=== PATIENT | female | born 1960 | race Caucasian/White ===

== ENCOUNTER → 2017-02-21 | Outpatient (CLI) | payer MEDICARE ==
[~2017-02-21] VITALS: Ht 160 cm; Wt 104.3 kg
[~2017-02-21] MED LIST: ATIVAN0.5 MG PO; ELIQUIS 2.5 MG2.5 MG PO; ELIQUIS2.5 MG PO; FLEXERIL 10 MG10 MG PO; HYDROXYZINE HCL25 MG PO; HYDROXYZINE HCL50 MG PO; IBUPROFEN600 MG PO; LIPITOR TAB 2020 MG PO; LORTAB 7.5-3251 EACH PO; NEURONTIN 300300 MG PO; NORCO 10-325 T1 EACH PO; NORCO 7.5-3251 EACH PO; PERCOCET 7.5-31 EACH PO; SERTRALINE HCL100 MG PO; TYLENOL 325MG325 MG PO; ZOLOFT100 MG PO
[2017-02-21 10:19] LABS: HEMOGLOBIN 14.1 gm/dl (12.3-15.3); RED BLOOD COUNT 4.72 M/UL (4.00-5.10); WHITE BLOOD COUNT 6.2 K/UL (4.5-11.0)
[2017-02-21 10:38] LABS: BUN/CREATININE RATIO 40 (0-10)
== END ==
LOC: OPSV2 09:36 → EDSTATUS 10:00
PROVIDERS: Orthopaedic Surgery
DX: Z01.810 Encounter for preprocedural cardiovascular examination (principal); Z01.812 Encounter for preprocedural laboratory examination; Z01.818 Encounter for other preprocedural examination; M17.11 Unilateral primary osteoarthritis, right knee
CPT/HCPCS: 36415; 71020; 80048; 85025; 87081; 93005

== ENCOUNTER → 2017-03-03 | Outpatient (CLI) | payer MEDICARE ==
[2017-03-03 12:15] LABS: BUN/CREATININE RATIO 30 (0-10)
== END ==
LOC: LAB 11:34
PROVIDERS: Orthopaedic Surgery
DX: Z01.812 Encounter for preprocedural laboratory examination (principal)
CPT/HCPCS: 80048; 86850; 86900; 86901

== ENCOUNTER 2017-03-04 05:41 | Inpatient (IN) | payer MEDICARE ==
[~2017-03-04] VITALS: Ht 160 cm; Wt 104.3 kg
[~2017-03-04 05:41] MED LIST changes: -ELIQUIS 2.5 MG2.5 MG PO; -ELIQUIS2.5 MG PO; -FLEXERIL 10 MG10 MG PO; -NORCO 10-325 T1 EACH PO; -NORCO 7.5-3251 EACH PO; -PERCOCET 7.5-31 EACH PO; -SERTRALINE HCL100 MG PO; -TYLENOL 325MG325 MG PO
[2017-03-05 05:44] LABS: RED BLOOD COUNT 3.76 M/UL (4.00-5.10); WHITE BLOOD COUNT 9.4 K/UL (4.5-11.0)
[2017-03-05 05:57] LABS: BUN/CREATININE RATIO 20 (0-10)
[2017-03-06 05:17] LABS: HEMOGLOBIN 10.5 gm/dl (12.3-15.3); RED BLOOD COUNT 3.58 M/UL (4.00-5.10); WHITE BLOOD COUNT 7.1 K/UL (4.5-11.0)
[2017-03-06 05:30] LABS: BUN/CREATININE RATIO 22 (0-10)
[2017-03-06] MEDS ORDERED: ELIQUIS2.5 MG PO (17:33)
[2017-03-06] MEDS ORDERED: NORCO 10-325 T1 EACH PO (17:35)
[2017-03-06] MEDS ORDERED: TYLENOL 325MG325 MG PO (17:41)
[2017-06-19] MEDS ORDERED: IBUPROFEN600 MG PO (09:49)
[2017-06-19] MEDS ORDERED: NORCO 7.5-3251 EACH PO (09:49)
[2017-06-19] MEDS ORDERED: NEURONTIN 300300 MG PO (09:50)
[2017-06-19] MEDS ORDERED: ATIVAN0.5 MG PO (09:50)
[2017-06-19] MEDS ORDERED: LIPITOR TAB 2020 MG PO (09:51)
[2017-06-19] MEDS ORDERED: SERTRALINE HCL100 MG PO (09:51)
[2017-06-21] MEDS ORDERED: HYDROXYZINE HCL25 MG PO (09:53)
[2017-06-21] MEDS ORDERED: FLEXERIL 10 MG10 MG PO (19:34)
[2017-06-21] MEDS ORDERED: ELIQUIS 2.5 MG2.5 MG PO (19:35)
[2017-06-21] MEDS ORDERED: PERCOCET 7.5-31 EACH PO (19:35)
== END 2017-03-06 19:30 | disposition home health service (06) | DRG 470 ==
LOC: M/S 05:41 → ZOBSOF 05:41 → M/S 11:15
PROVIDERS: ADMIT Orthopaedic Surgery
PROC: 0SRC0J9 Replacement of Right Knee Joint with Synthetic Substitute, Cemented, Open Approach (ICD-10-PCS; principal; 2017-03-04 11:15)
DX: M17.11 Unilateral primary osteoarthritis, right knee (principal); Z68.41 Body mass index [BMI] 40.0-44.9, adult; M21.161 Varus deformity, not elsewhere classified, right knee; M25.761 Osteophyte, right knee; G89.29 Other chronic pain; E66.9 Obesity, unspecified; I10 Essential (primary) hypertension; E78.5 Hyperlipidemia, unspecified; K21.9 Gastro-esophageal reflux disease without esophagitis; F17.210 Nicotine dependence, cigarettes, uncomplicated; F41.9 Anxiety disorder, unspecified; Z86.718 Personal history of other venous thrombosis and embolism; Z79.1 Long term (current) use of non-steroidal anti-inflammatories (NSAID); Z79.891 Long term (current) use of opiate analgesic; Z79.899 Other long term (current) drug therapy; Z88.5 Allergy status to narcotic agent; Z90.710 Acquired absence of both cervix and uterus; Z90.49 Acquired absence of other specified parts of digestive tract; Z98.890 Other specified postprocedural states; Z82.3 Family history of stroke; Z82.49 Family history of ischemic heart disease and other diseases of the circulatory system; Z80.9 Family history of malignant neoplasm, unspecified
CPT/HCPCS: 36415; 73560; 80048; 85027; 97110; 97116; 97530; 97535; C1776; J0171; J0690; J0735; J1200; J1885; J2250; J2274; J2405; J2795; J3010; J3370; J7050; J7120; Q0162; Q0177